=== PATIENT | male | born 1955 | race Caucasian/White ===

== ENCOUNTER 2017-01-03 14:28 | Emergency (ER) | payer SELFPAY ==
[~2017-01-03] VITALS: Ht 170.2 cm; Wt 64.3 kg
[2017-01-03 14:30] VITALS: Ht 170.2 cm; Wt 64.3 kg
[2017-01-03] MEDS ORDERED: ACETAMINOPHEN 500 MG TAB PO STA (16:40)
--- NOTE | 2017-01-03 17:20 | RADRPT ---
PROCEDURE: XR Chest. CLINICAL INDICATION: Dyspnea TECHNIQUE: Single frontal chest x-ray. COMPARISON: None. FINDINGS: There is mild elevation of the left hemidiaphragm with basilar atelectasis. Lungs are hyperinflated . There are no acute infiltrates or focal consolidation. The heart is normal in size. There is ao rtic atherosclerosis. The osseous structures are intact. There is old left lateral rib fracture. IMPRESSION: 1. Hyperinflated lungs with no acute infiltrates. 2. Elevation of the left hemidiaphragm with basilar atelectasis. 3. Aortic atherosclerosis. RPTAT: BB .Darnell Blake MD, MD Date Time Electronically viewed and signed by .Darnell Blake MD, on 01/03/2017 17:20 .O/
[2017-01-03] MEDS ORDERED: D-ME473S18 PO (17:37)
[2017-01-03] MEDS ORDERED: AZIT250T94 PO (17:37)
[2017-01-03] MEDS ORDERED: IBUP-1542 PO (17:37)
--- NOTE | 2017-01-03 17:40 | ERD ---
ER Documentation Chief Complaint Date/Time DATE: 01/03/17 TIME: 17:39 Chief Complaint cough with rib pain x 1 night HPI 61-year-old male complains of a productive cough for last 3 days. His additional complaint of right-sided rib pain with coughing. He hasn't pain at rest. Denies any anterior chest pain. Denies any fevers, vomiting, abdominal pain. Denies any shortness of breath or calf swelling. ROS All systems reviewed and are negative except as per history of present illness. Medications Home Meds Active Scripts Dextromethorphan Hb-Promethazine Hcl (Promethazine DM Syrup) 473 Ml Syrup, 5 ML PO Q6H Y for COUGH, #4 OZ Prov:AMOR CORTEZ MD 01/03/17 Ibuprofen* (Motrin*) 600 Mg Tab, 600 MG PO Q6, #15 TAB Prov:AMOR CORTEZ MD 01/03/17 Azithromycin* (Zithromax*) 250 Mg Tablet, 250 MG PO .ZPACK DIRECTED, #6 TAB TAKE 500 MG (2 TABS) THE FIRST DAY THEN 250 MG (1 TAB) DAYS 2-5 Prov:AMOR CORTEZ MD 01/03/17 Allergies Allergies: Coded Allergies: No Known Allergy (Unverified , 01/03/17) PMhx/Soc Medical and Surgical Hx: pt denies Medical Hx, pt denies Surgical Hx Hx Alcohol Use: Yes Hx Substance Use: No Hx Tobacco Use: Yes Smoking Status: Current every day smoker Physical Exam Vitals Vital Signs Date Time Temp Pulse Resp B/P Pulse Ox O2 Delivery O2 Flow Rate FiO2 01/03/17 14:30 98.6 88 18 120/69 98 Physical Exam Const: [] Alert, not ill-appearing. Head: Atraumatic Eyes: Normal Conjunctiva ENT: Normal External Ears, Nose and Mouth. Neck: Full range of motion..~ No meningismus. No JVD Resp: Clear to auscultation bilaterally. Bite tenderness on the right chest wall. No crepitance or deformities or skin changes. Cardio: Regular rate and rhythm, no murmurs Abd: Soft, non tender, non distended. Normal bowel sounds Skin: No petechiae or rashes Back: No midline or flank tenderness Ext: No cyanosis, or edema Neur: Awake and alert Psych: Normal Mood and Affect Results 24 hrs Current Medications Medications (Trade) Dose Ordered Sig/Jennifer Route PRN Reason Start Time Stop Time Status Last Admin Dose Admin Acetaminophen (Tylenol Tab) 500 mg ONCE STAT PO 01/03/17 16:40 01/03/17 16:41 DC 01/03/17 16:44 Procedures/MDM Chest X-ray 1V Interpreted by me: Soft Tissue: No acute abnormalities Bones: No acute abnormalities Mediastinum/Cardiac Silhouette/Lungs: [No acute abnormalities]. Impression- normal 1 view chest x-ray Patient presents with corrective cough and right-sided chest wall pain consistent with pleuritic chest pain. There is no signs or symptoms to suggest acute coronary syndrome, although and wasn't, hemothorax, pneumothorax, acute abdomen. Patient be treated with Zithromax, promethazine and ibuprofen.The patient was stable with no new complaints during the ER course. Clinically, there is no current evidence to suggest meningitis, sepsis, acute abdomen, pneumonia, acute coronary syndrome, pulmonary embolism, or any other emergent condition appearing to require further evaluation or hospitalization. The patient should certainly return for any new or worsening symptoms per the aftercare instructions. They should otherwise follow-up with her primary care doctor for reevaluation this week. Departure Diagnosis: Primary Impression: URI, acute Condition: Stable Patient Instructions: Acute Bronchitis Additional Instructions: Examines normal hoy. Cheque otro vez con [place] doctor primario en el proximo barnes or regresa para mas o nueva simptomas. AMOR CORTEZ MD Jan 03, 2017 17:40
== END 2017-01-03 19:37 | disposition left against medical advice (07) ==
LOC: FTE 14:28
DX: J06.9 Acute upper respiratory infection, unspecified (principal); F17.210 Nicotine dependence, cigarettes, uncomplicated
CPT/HCPCS: 71010